=== PATIENT | female | born 1990 | race African-American/Black ===

== ENCOUNTER 2021-11-19 09:43 | Emergency (ER) | payer MEDICAID ==
[~2021-11-19] VITALS: Ht 165.1 cm; Wt 77.0 kg
[2021-11-19 09:49] VITALS: BP 103/68
[2021-11-19] MEDS ORDERED: ACETAMINOPHEN 325MG TABLET PO ONE (10:15)
[2021-11-19 11:22] LABS: CLARITY URINE CLEAR (CLEAR); COLOR URINE YELLOW (YELLOW); KETONES URINE NEGATIVE (NEGATIVE); LEUKOCYTE ESTERASE URINE NEGATIVE (NEGATIVE); NITRITE URINE NEGATIVE (NEGATIVE); OCCULT BLOOD URINE NEGATIVE (NEGATIVE); PROTEIN URINE NEGATIVE (NEGATIVE); SPECIFIC GRAVITY URINE 1.024 (1.005-1.030)
[2021-11-19] MEDS ORDERED: CEFTRIAXONE SODIUM 500 MG/VIAL IM ONE (12:00)
[2021-11-19] MEDS ORDERED: ACETAMINOPHEN 325MG TABLET PO NR (12:00)
[2021-11-19] MEDS ORDERED: DOXYCYCLINE HYCLATE 100MG CAPSULE PO ONE (12:00)
[2021-11-19] MEDS ORDERED: DOXY100C5 MT (12:16)
[2021-11-21 07:07] LABS: NEISSERIA GONORRHOEAE NAA Negative (Negative)
== END 2021-11-19 12:54 | disposition home or self-care (01) ==
LOC: ER 09:43
DX: R10.2 Pelvic and perineal pain (principal); Z98.51 Tubal ligation status; Z91.041 Radiographic dye allergy status; Z98.890 Other specified postprocedural states
CPT/HCPCS: 76830; 76856; 81003; 81025; 87210; 87491; 87591; 96372; 99284; J0696